=== PATIENT | male | born 1990 | race Caucasian/White ===

== ENCOUNTER 2017-08-18 23:27 | Emergency (ER) | payer BC ==
[~2017-08-18] VITALS: Ht 180.3 cm; Wt 104.3 kg
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
--- NOTE | 2017-08-19 00:20 | NUR ---
Vocational Rehabilitation Administrator Jaden at bedside to eval.
[2017-08-19 00:34] VITALS: BP 128/78
--- NOTE | 2017-08-19 00:35 | NUR ---
Patient discharged to home in stable condition. Written and verbal after care instructions given. Patient verbalizes understanding of instruction. Patient is ambulatory with steady gait, no further complaints.
== END 2017-08-19 00:35 | disposition home or self-care (01) ==
LOC: ER 23:31
DX: L81.8 Other specified disorders of pigmentation (principal)
CPT/HCPCS: A4606; Z7610